=== PATIENT | male | born 1975 | race Caucasian/White ===

== ENCOUNTER → 2024-05-08 08:46 | Outpatient (REF) | payer BC, SELFPAY | LOC: RAD 08:46 | PROVIDERS: ATTENDING PHYSICIAN Surgery Vascular Surgery; FAMILY PHYSICIAN Internal Medicine | DX: I73.9 Peripheral vascular disease, unspecified (principal) | CPT/HCPCS: 93922; 93925 ==

== ENCOUNTER 2024-11-21 20:37 | Inpatient (IN) | payer BC, SELFPAY ==
[2024-11-21] VITALS (9 sets, daily range): BP systolic 119–174; BP diastolic 77–115; BMI 17.7
[2024-11-21 15:41] LABS: % Basophils 1.4 % (0-2); % Eosinophils 1.2 % (0-6); % Immature Granulocytes 0.1 % (0-0.5); % Lymphocytes 24.3 % (20.5-51.1); % Monocytes 8.2 % (1.7-9.3); % Neutrophils 64.8 % (42.2-75.2); Absolute Basophils 0.1 10^3/uL (0-0.2); Absolute Eosinophils 0.1 10^3/uL (0-0.7); Absolute Lymphocytes 1.9 10^3/uL (1.2-3.4); Absolute Monocytes 0.6 10^3/uL (0.1-0.6); Hematocrit 39.2 % (39.0-52.0); Hemoglobin 13.7 g/dL (13.0-18.0); Mean Corp Hgb Conc. 34.9 g/dL (33.0-37.0); Mean Corpuscular Hgb 31.9 pg (27.0-31.0); Mean Corpuscular Volume 91.4 fL (80.0-94.0); Mean Platelet Volume 8.2 fL (7.4-10.4); Nucleated Red Blood Cells % 0 % (-); Platelet Count 282 10^3/uL (130-400); Red Blood Cell Count 4.29 10^6/uL (4.70-6.10); Red Cell Dist. Width 12.9 % (11.5-14.5); White Blood Cell Count 7.7 10^3/uL (4.8-10.8)
--- NOTE | 2024-11-21 15:41 | CON.VAS ---
Consultation
Consultation Request
Date/Time Consultation Performed: 11/21/24 1545
Requesting Provider: ED physician
Performing Provider: Darlin Ruano NP-C for Santiago Norman M.D.
Reason for Consultation: Left lower extremity increased claudication symptoms
Medical History
-
Chief Complaint: Left lower extremity increased claudication symptoms
History of Present Illness:
This is a 49-year-old male with significant past medical history for peripheral arterial disease, hypertension, GERD, asthma, Raynaud's, agoraphobia, and small fiber neuropathy who presents to [facility] ED with reports of worsening onset of left
lower extremity claudication symptoms starting this afternoon. Patient denies pain at rest or current pain. He does endorse that pain only comes on with long distances of walking roughly a parking lots distance then develops onset of left lower
extremity calf pain described as cramping. Patient is known to our vascular surgical service for management of peripheral arterial disease and acute limb ischemia please see vascular surgical history below. Patient offers no other complaints other
than left lower extremity claudication. Denies left foot paresthesia, motor loss, tissue loss, wounds, or change in temperature to foot. He does note at baseline left foot is cooler than right.
Past vascular surgical history:
10/27/17- Left lower extremity arteriogram. Third order vessel catheterization of left peroneal artery via right common femoral artery puncture. Placement of Zilver PTX self expanding drug-eluting Nitinol stent left distal superficial femoral artery,
using 6 mm x 40 mm stent. Balloon angioplasty of left behind knee popliteal artery with a 5 mm x 40 mm Lutonix drug coated balloon and subsequent balloon angioplasty with 6 mm x 40 mm angioplasty balloon. Right femoral angiogram. Supervision and
interpretation. Santiago Norman MD
11/10/20- Right ultrasound-guided common femoral artery puncture. Left lower extremity arteriogram with third order catheterization. Lytic catheter placement into the SFA and popliteal artery. tPA infusion with 4 mg tPA bolus. Rod Douglas MD
11/11/20- Left lower extremity arteriogram, catheterization. Removal of lytic catheter. Angioplasty and stent of left SFA and popliteal artery using a 6 x 140, 6 x 100 Zilver PTX. Rod Douglas MD
Past Medical History
Past Medical History: HTN and Other (Peripheral arterial disease, agoraphobia, eczema, Raynaud's, small fiber neuropathy)
Past Surgical History: Other (Tonsillectomy, vasectomy, dental surgeries)
Social History
Tobacco: Former Smoker
Alcohol: Daily
Allergies / Home Medications
Allergy/AdvReac Type Severity Reaction Status Date / Time
Penicillins Allergy Swelling Verified 11/21/24 15:21
�Medication �Instructions �Recorded �Confirmed �Type
atorvastatin 20 mg tablet 20 mg PO QPM High cholesterol 11/10/20 12/10/20 History
lisinopril 10 mg tablet 20 mg PO Daily Blood pressure 11/10/20 12/10/20 History
clopidogrel 75 mg tablet 75 mg PO DAILY #60 tabs 11/12/20 12/10/20 Rx
rivaroxaban 20 mg tablet (Xarelto) 20 mg PO QPM #60 tabs 11/12/20 12/10/20 Rx
pantoprazole 40 mg granules 40 mg PO DAILY #14 ea 05/20/22 Rx
delayed-release for susp in packet
(Protonix)
sucralfate 100 mg/mL oral 5 ml PO QID #400 mL 05/20/22 Rx
suspension (Carafate)
Review of Systems
-
History Source: Patient
Constitutional: Reports No Symptoms
EENT: Reports No Symptoms
Respiratory: Reports No Symptoms
Cardiac: Reports No Symptoms
Vascular: Reports Leg Pain / Claudication
Abdomen/GI: Reports No Symptoms
: Reports No Symptoms
Musculoskeletal: Reports No Symptoms
Skin: Reports No Symptoms
Neurological: Reports No Symptoms
Endocrine: Reports No Symptoms
Physical Exam
Vital Signs
Temp Pulse Resp BP Pulse Ox
98.1 F 111 20 174/91 98
11/21/24 15:21 11/21/24 15:21 11/21/24 15:21 11/21/24 15:21 11/21/24 15:21
Lab Results
11/21/24 15:29
Physical Exam
General: No Apparent Distress and Comfortable
HEENT: Normocephalic, Anicteric and Atraumatic
Respiratory: Non Labored Respirations
Cardiac: Negative JVD
GI: Soft, Non Tender and Non Distended
Musculoskeletal: Edema
Skin: Dry
Neuro: AO x 3
Pulses: Right Dorsalis Pedis: Doppler (Absent left DP, patient indicates this is baseline) and Bilateral Posterior Tibial: Doppler
Assessment / Plan
-
Assessment: 49-year-old male with significant medical history for PAD presenting with acute onset of worsening claudication style pain at left lower extremity
Plan:
Would recommend obtaining CT angio of aorta with runoff to fully evaluate peripheral arterial disease/or acute change to previously placed stents
Plan reviewed with attending Dr. Santiago Norman M.D., who agrees
[2024-11-21 15:50] LABS: APTT 27.6 Sec (23.4-35.0)
[2024-11-21 15:54] LABS: ALT (SGPT) 20 U/L (0-50); AST (SGOT) 23 U/L (17-59); Albumin 4.6 g/dl (3.5-5.0); Alkaline Phosphatase 69 U/L (38-126); Blood Urea Nitrogen 8 mg/dl (9-20); Calcium 9.6 mg/dl (8.4-10.2); Carbon Dioxide 24 mmol/L (22-30); Glucose 146 mg/dl (70-99); Potassium 4.4 mmol/L (3.5-5.1); Sodium 135 mmol/L (135-145); Total Bilirubin 0.8 mg/dl (0.2-1.3); eGFR > 60.00
--- NOTE | 2024-11-21 15:54 | ED.GENMED ---
History of Present Illness
General
Chief Complaint: Vascular Symptoms
Source: patient
Exam Limitations: none
Time Seen by Provider: 11/21/24 15:48
Nursing documentation reviewed up to this point in time: agreed with
History of Present Illness
History of Present Illness:
Patient is a 49-year-old male with history hypertension, DVT on Xarelto, PAD with stents in left lower extremity presenting to the emergency department with acute onset numbness/cramping in left calf. Patient states he did just finished driving for
2 hours when he got off the car noticed a numbness/cramping sensation in his left calf. The symptoms are worse when ambulating. He denies any tingling, numbness, pain in left lower extremity at rest. He denies any obvious change in temperature of
foot. He states that the symptoms reminded him of when he had an acute arterial occlusion requiring stent placement years ago. He contacted his vascular surgeons office who referred him to the emergency department for further evaluation.
Patient is compliant with his Xarelto.
Patient denies any chest pain or shortness of breath.
Past History
Past History
ED Past Medical History: Other and Other
ED Past Surgical History: Other
Social History
Tobacco: Former smoker
Alcohol: Daily
Personal:
Living: with family
Employment: Employed
Family History
Family History: Other
Review of Systems
Review of Systems
Allergies reviewed?: Yes
All Other Systems: ROS reviewed and negative except as documented in HPI and ROS
Phy Exam
Physical Exam
Physical Exam:
Vitals: Mildly tachycardic on arrival. Hypertensive, otherwise vital signs stable.
General: Patient is well appearing, no acute distress. Nontoxic appearing
Skin: Warm and dry, no rashes or lesions
Head: Normocephalic, atraumatic
Eyes: Sclera nonicteric. EOMs intact. No nystagmus.
Throat: Protecting airway
Neck: Normal ROM, no cervical spine tenderness, no meningismus
Cardiac: Tachycardic, normal rhythm, no murmurs
Pulm: Normal respiratory effort, no wheezes, rales, rhonchi heard on exam.
.
Abdomen: No abdominal tenderness.
Extremities: Left lower extremity with dopplerable PT pulse. No pallor or erythema. Normal sensation in LLE. No reproducible tenderness to left calf. Negative Homans' sign of LLE. Normal capillary refill. RLE with palpable PT pulse. Unable to
Doppler DP pulses bilaterally which apparently is patient's baseline.
Neuro: AAOx3. CN II-XII intact. No focal neurologic deficits.
Psychiatric: Normal affect.
Course
Orders/Labs/Results
Orders:
Orders
11/21/24 Dinner
Regular
At Your Request: Full Participation
11/21/24 15:22
CT Abd Aorta Angio W/ Run Off Stat
Comment:
Reason For Exam: LE pain, h/o arterial lysis and stent occlusion
US Legs, Left [US Periph Venous LOWER Ext LT] Urgent
Comment:
Reason For Exam: left calf pain
11/21/24 15:29
Complete Blood Count/With Diff Urgent
Comprehensive Metabolic Panel Urgent
PTT Urgent
11/21/24 17:12
Admit Patient As Directed
Co-Sign Provider:
Level of Care: Inpatient admission
Assign to:: Telemetry
Physician / Group: Vascular
Diagnosis: critical limb ischemia
Reason for Telemetry: Other
Other Reason for Telemetry: critical limb ischemia
Date to Stop Telemetry: 11/23/24
Time to Stop Telemetry: 11:00
Reason for Hospitalization: critical limb ischemia
Expected length of stay greater than two midnights?: Yes
ELOS- Estimated Length of Stay in days: 3
I certify the patient meets the requirements for IP care: Yes
Code Status As Directed
Resuscitation Status: Full Code
Bisacodyl [Dulcolax] 10 mg RECTAL DAILYPRN PRN
Heparin Protocol- PTT Orders As Directed
PTT per Heparin protocol: -Obtain CBC and baseline PTT - if not already collected.
-Obtain PTT 6 hours from start of infusion. Then, every 6 hours until 2 consecutive
PTT's are therapeutic. Then, PTT Daily.
-With each rate change, obtain PTT every 6 hours until 2 consecutive PTT's are
therapeutic. Then, PTT Daily.
Activity As Directed
Activity Level: Out of Bed-Early Mobility
Bladder Scan As Directed
Follow Bladder Retention/Intermittent Cath Algorithm?: Yes
Frequency: Per Retention Algorithm
Bladder Scan As Directed
Follow Bladder Retention/Intermittent Cath Algorithm?: Yes
PRN if no void in __ hours: 6
Frequency: Per Retention Algorithm
If Bladder Scan Result >: 400
then:: Straight cath
Intake/ Output As Directed
Frequency: Per unit guidelines
Notify MD As Directed
Notify physician if: PTT is greater than or equal to 200.
Straight Cath As Directed
Frequency: Per Retention Algorithm
Additional Instructions: as per intermittent urinary catheter algorithm
Straight Cath As Directed
Frequency: Per Retention Algorithm
Additional Instructions: straight cath as needed per acute urinary retention algorithm for 24 hrs
Additional Instructions: for bladder scan greater than 400 mL
Vital Signs As Directed
Frequency: Per unit guidelines
11/21/24 17:13
PRN Pain Medication Management As Directed
May give lesser potent ordered pain med per pt: Yes
preference::
Protocol:: Medication orders for pain may be administered in a
manner that supports deferring to patient preference
when the pt is:
-Requesting an ordered lesser potent pain medication.
Least to most potent pain medications are defined as:
acetaminophen < NSAID < tramadol < opioids (morphine,
oxycodone, hydromorphone).
- Requesting a lesser dose of the same medication IF
ORDERED.
- Requesting a less intrusive route of administration
if both routes are prescribed by the provider (PO <
IV).
11/21/24 17:15
Acetaminophen [Tylenol] 650 mg PO Q4HPRN PRN
HYDROmorphone [Dilaudid] 0.5 mg IV Q4HPRN PRN
Heparin 45636 Units/250 ml 25,000 units in 250 ml IV PER PROTOCOL
Weight to be used for heparin protocol in kilograms (kg):: 58
Protocol:: Vascular Surgery
PTT Goal Range to be used:: PTT 73 to 111 seconds
Order type:: Initial
INITIAL Infusion Dose (UNITS/KG/hr) & then follow protocol:: 18 units/kg/hr
Infusion Dose in UNITS/hr & then follow protocol (UNITS/hr):: 1,000
INFUSION RATE in mL/hr & then follow protocol (mL/hr):: 10
PTT less than or equal to 64 seconds:: Notify Ordering Provider. obtain orders for rate increase &
possible bolus
PTT 64.1 to 72.9 seconds:: Increase rate by 100 units/hr (+ 1 mL/hr)
PTT 73 to 111 seconds:: Target Range. No change in rate.
PTT 111.1 to 130.9 seconds:: Decrease rate by 100 units/hr (- 1 mL/hr)
PTT 131 to 199.9 seconds:: HOLD for 1 hour. Then decrease rate by 200 units/hr (- 2 mL/hr)
PTT greater than or equal to 200 seconds:: STOP INFUSION. Notify Ordering provider to obtain further orders.
Lab follow-up:: Each change, PTT q6h until 2 consecutive are therapeutic. Then PTT
daily.
Oxycodone [Roxicodone] 5 mg PO Q4HPRN PRN
11/21/24 17:42
Lorazepam [Ativan] 0.5 mg PO NOW STA
11/22/24 06:00
Type+Screen IN AM
NPO
Allow oral meds: Yes
Allow clear liquids: No
NPO with Ice Chips: No
Basic Metabolic Panel IN AM
Complete Blood Count/No Diff IN AM
US Vascular Mapping Bilateral IN AM
Comment:
Reason For Exam: upper and lower ext BL
11/23/24 06:00
Complete Blood Count/No Diff Q2D
Comment: Notify MD if platelet count is <130,000 or decreases by 50% from baseline
11/23/24 11:00
DC Protocol for Telemetry ONCE
11/25/24 06:00
Complete Blood Count/No Diff Q2D
Comment: Notify MD if platelet count is <130,000 or decreases by 50% from baseline
11/27/24 06:00
Complete Blood Count/No Diff Q2D
Comment: Notify MD if platelet count is <130,000 or decreases by 50% from baseline
11/29/24 06:00
Complete Blood Count/No Diff Q2D
Comment: Notify MD if platelet count is <130,000 or decreases by 50% from baseline
12/01/24 06:00
Complete Blood Count/No Diff Q2D
Comment: Notify MD if platelet count is <130,000 or decreases by 50% from baseline
12/03/24 06:00
Complete Blood Count/No Diff Q2D
Comment: Notify MD if platelet count is <130,000 or decreases by 50% from baseline
12/05/24 06:00
Complete Blood Count/No Diff Q2D
Comment: Notify MD if platelet count is <130,000 or decreases by 50% from baseline
12/07/24 06:00
Complete Blood Count/No Diff Q2D
Comment: Notify MD if platelet count is <130,000 or decreases by 50% from baseline
Abnormal Lab Results
11/21/24
15:29
RBC 4.29 L 10^6/uL
(4.70-6.10)
MCH 31.9 H pg
(27.0-31.0)
BUN 8 L mg/dl
(9-20)
Glucose 146 H mg/dl
(70-99)
11/21/24 15:29
11/21/24 15:29
Vital Signs
Initial and Last Documented VS:
Initial Vital Signs
Temp Pulse Resp BP Pulse Ox
98.1 F 111 20 174/91 98
11/21/24 15:21 11/21/24 15:21 11/21/24 15:21 11/21/24 15:21 11/21/24 15:21
Last Documented Vital Signs
Temp Pulse Resp BP Pulse Ox
98.1 F 89 22 144/115 97
11/21/24 15:21 11/21/24 15:45 11/21/24 15:45 11/21/24 15:44 11/21/24 15:45
MDM/Problems Addressed
Differential Diagnosis Includes:
Not limited to: Acute arterial occlusion, DVT, complication, muscle strain, neuropathy, etc.
MDM/Problems Addressed:
49-year-old male with known PAD and arterial stents in LLE presenting with claudication symptoms in left lower extremity after 2-hour car ride. He notices tingling, pain in calf after walking short distances. No pain, numbness, coolness at rest.
Compliant with Xarelto. Patient tachycardic and hypertensive on arrival. Otherwise vital signs stable. He is afebrile. Physical exam as above. Patient has no obvious deformity or visual abnormality to bilateral lower extremities. He has
dopplerable left PT pulse and palpable right PT pulse. Unable to Doppler DP pulses bilaterally which apparently is baseline. Patient was seen immediately by vascular surgery team, HAND COPER. Concern for occlusion of arterial stent. Will check basic
labs, ultrasound of LLE and CTA abdomen/pelvis with bilateral lower extremity runoff. Patient remains well and comfortable appearing.
Update: Lower extremity ultrasound and CTA confirmed complete occlusion of left popliteal stent. Vascular down to evaluate patient at bedside who had lengthy discussion regarding surgical options. Patient remains asymptomatic at rest with
dopplerable PT pulses bilaterally. Plan will be heparin, admission to vascular surgery. Plan for vein mapping/surgical treatment tomorrow. Patient excepted to vascular surgery service in stable condition.
Chronic conditions affecting care:
PAD w/ arterial stent in LLE, hypertension, DVT
Acute Exacerbation and/or Progression of Chronic Illness:
Acute complete occlusion of left superficial femoral and popliteal artery stents, acutely hypertensive
*Radiology
Radiology exam reviewed: radiology read reviewed
*Pulse Oximetry
Patient hypoxic: no
*EKG
Interpreted by ED Provider?: NA
*Clinical Dermatologist Interpretation
Rate: Clinical Dermatologist- N/A
*Critical Care Note
Total Time (30-74mins, 75-104mins- exclusive of procedures): Not Applicable
Patient Management
Discussion with other providers: Holter Technician (Case discussed with vascular surgery)
Escalation/DeEscalation of care consider admission/obs:
Admit indicated
ED Attending Note
-
Portions of this chart may have been created with voice recognition software.� Occasional wrong word or��sound alike� substitutions may have occurred due to the inherent limitations of voice recognition software.
Discharge Plan
Departure
Patient Disposition: Admit
Date of Disposition: 11/21/24
Time of Disposition: 17:35
Admit to doctor: Dr. Norman
Presentation/result/management discussed w/ accepting MD/DO: Vascular Surgery
Discharge Problem:
PAD (peripheral artery disease)
Prescriptions:
No Action
atorvastatin 20 MG tablet
20 mg PO QPM
lisinopril 10 MG tablet
20 mg PO Daily
clopidogrel 75 MG tablet
75 mg PO DAILY Qty: 60 0RF
rivaroxaban [Xarelto] 20 MG tablet
20 mg PO QPM Qty: 60 0RF
pantoprazole [Protonix] [address] for susp in packet
40 mg PO DAILY Qty: 14 0RF
sucralfate [Carafate] 100 mg/mL suspension
5 ml PO QID Qty: 400 0RF
Interventions
Interventions:
*General Assessment Last Done: 11/21/24 15:21
ED- Cardiac Assessment Last Done: 11/21/24 16:13
ED- Pulmonary Assessment Last Done: 11/21/24 16:13
ED-Peripheral Vascular Assessment Last Done: 11/21/24 16:13
Discharge Date and Time
Print Language: BAHAMIAN
[2024-11-21 16:04] LABS: Chloride 101 mmol/L (98-107)
--- NOTE | 2024-11-21 17:17 | W.PN.UPDATE ---
Update Note
Progress Note Update
Reviewed CTA with Dr Norman. SFA/pop stent occluded.
Plan:
-Admit
-NPO after midnight
-Vein mapping in AM
-Heparin gtt
-Planning for Lysis vs open thrombectomy vs bypass tomorrow, Dr Norman to discuss with pt tomorrow morning after vein mapping.
-I will update pt tonight on this plan
[2024-11-21] MEDS: HEPARIN 25000 UNITS/250 ML IV (17:29)
[2024-11-21] MEDS: ATIVAN 0.5 MG PO (18:11)
[2024-11-21] MEDS: ROXICODONE 5 MG PO (18:15)
--- NOTE | 2024-11-21 21:30 | PTCARENOTE ---
Pt admitted from ED at 21:25 dx Left Critical Limb Ischemia. PMH HTN, (DVT on Xarelto) CAD (2 stents behind left knee), former smoker.
Left SFA/pop stent occluded. NPO after midnight, Vein mapping in AM, Heparin gtt, Planning for Lysis vs open thrombectomy vs bypass tomorrow. Pt bed in a low position, pain mgmt addressed, call light in reach, care ongoing.
[2024-11-22] VITALS (20 sets, daily range): BP systolic 111–148; BP diastolic 51–94; BMI 17.7
[2024-11-22] MEDS: ROXICODONE 5 MG PO ×4 (00:10→20:08)
[2024-11-22 00:18] LABS: APTT 42.3 Sec (23.4-35.0)
[2024-11-22 07:29] LABS: Hematocrit 38.1 % (39.0-52.0); Mean Corp Hgb Conc. 34.1 g/dL (33.0-37.0); Mean Corpuscular Hgb 31.4 pg (27.0-31.0); Mean Platelet Volume 8.5 fL (7.4-10.4); Platelet Count 262 10^3/uL (130-400); Red Blood Cell Count 4.14 10^6/uL (4.70-6.10); Red Cell Dist. Width 13.1 % (11.5-14.5); White Blood Cell Count 7.9 10^3/uL (4.8-10.8)
[2024-11-22 07:42] LABS: APTT 57.7 Sec (23.4-35.0)
--- NOTE | 2024-11-22 07:51 | W.PN.UPDATE ---
Update Note
Progress Note Update
Seen and evaluated with TECHNICAL SALES ASSOCIATE's. Known well to me. History of left lower extremity angioplasty/stenting. Subsequent occlusion underwent thrombolysis with stenting again. Has stents that extend from distal SFA to popliteal behind and below the knee.
Acute symptoms of left calf discomfort after long car trip when he got up. Then noted significant claudication. No rest pain in the foot. Exam as noted in H&P. Palpable left femoral pulse. Nonpalpable distally. Left foot is warm.
Motor/sensory function fully intact. CT angiogram reviewed. Occlusion of the stents. However arteries are patent above and below. There may be the slightest filling defect at the bifurcation of the below-knee popliteal artery. However may just
be artifact.
I discussed extensively with the patient the findings. This is again recurrent occlusion of the stent. However it has been a few years since the last time. And likely this is mechanical due to kinking after sitting for a prolonged period. At
this point given his young age I would generally favor bypass, but based on his CT scan his veins look very small. Therefore prosthetic below the knee would not necessarily be ideal. In that case maybe restoring patency of the stent may be better,
but there is risk of recurrent stenosis or occlusions. He understands. Thrombolysis would be 1 option, or alternatively open surgical thrombectomy with SFA cutdown slightly more proximally may be reasonable. I likely would favor that as it would
be more expeditious, and the last time we had done thrombolysis he did not tolerate well and had severe worsening pain. Discussed this all with him. He is amenable. Will obtain vein mapping though to see if he has any suitable vein, and that
setting could consider bypass.
[2024-11-22 08:03] LABS: Blood Urea Nitrogen 6 mg/dl (9-20); Carbon Dioxide 26 mmol/L (22-30); Chloride 104 mmol/L (98-107); Estimated Creatinine Clearance 105 ml/min; Glucose 95 mg/dl (70-99); Sodium 137 mmol/L (135-145); eGFR > 60.00
[2024-11-22] MEDS: PERIDEX 0.12% ORAL RINSE 15 ML PO (11:05)
[2024-11-22] MEDS: BACTROBAN 2% OINTMENT 1 APPLIC NASAL (11:05)
--- NOTE | 2024-11-22 11:31 | CM ---
Reviewed the chart notes and spoke with the patient at the bedside. The patient resides with his spouse, son, and daughter in a two story home with no steps to enter. The patient reports no DME/VN/SNF in the past. The patient confirmed his
pharmacy of choice is the [facility]. CM continues to be available to patient/family and is monitoring medical plan for needs at discharge.
Plan: Discharge plans will depend on the patient's progress.
[2024-11-22] MEDS: VANCOCIN 200 IV (12:43)
--- NOTE | 2024-11-22 12:54 | W.SUR.PREOP ---
Pre-Operative Surgical Note
-
I have examined this patient prior to the performance of the scheduled procedure.
The patient's condition is unchanged from the time of the current History and
Physical and the patient is able to undergo the scheduled procedure.
I discussed extensively with patient. I discussed with his over the phone per his request as well. Discussed with them I plan for left lower extremity thrombectomy to reestablish patency in his left lower extremity arteries and stents. This
would be the most expeditious way for revascularization. Discussed if unable to do so, likely plan bypass (either with arm vein or alternatively prosthetic, ideally with leg vein but based on vein mapping and CAT scan imaging it looks very small).
We discussed alternatively primarily bypassing but the enhanced risks therein. Alternatively risk of no intervention and living with claudication discussed. I discussed procedural aspects. Discussed risk including not limited to bleeding,
infections, persistent ischemia, repeated thrombotic events, limb threat. He understands all wishes to proceed. I also did discuss the potential need for fasciotomies, but very unlikely as his foot is not floridly ischemic.
--- NOTE | 2024-11-22 13:57 | W.SUR.POST ---
Surgical Immediate Post Op
Note
Pre Op Diagnosis: critical limb ischemia
Post Op Diagnosis: Same
Procedure Performed: LLE open arterial thrombectomy
Primary Surgeon: Emerson
Secondary Surgeons: Alden BENNETT
Anesthesia: LMA
Estimated Blood Loss: 15cc
Fluids: See anesthesia flow sheet
Drains/Shunts: none
Specimens/Cultures: clot
Doppler/Duplex/Angio (Y/N): N
Complications: none
Operative Findings: Successful thrombectomy, +PT doppler signal
--- NOTE | 2024-11-22 14:20 | OR.RPT ---
Operative Report
Operative Report
PROCEDURE DATE: 11/22/2024
Preoperative diagnosis: Acute limb ischemia left lower extremity
Postoperative diagnosis: Same
Procedure: Left lower extremity arterial thrombectomy (SFA/popliteal).
Surgeon: Emerson
Orthotic Fitter: DARBY Ruano, required for all aspects of procedure including assistance with traction/countertraction, assistance with closure.
Complications: None
Anesthesia: General
Indications for procedure:
History of left SFA and popliteal (extending below knee) stents. Acute symptoms 1 day ago of left calf pain and atypical sensation, and then pain with walking after a long car ride he was sitting. He had been compliant on his usual anticoagulation
([facility] protocol) dosages. Therefore it was felt that perhaps his mechanically resulted from prolonged sitting and kinking of stents temporarily. Patient presented to the emergency room immediately upon symptom onset. Risk/benefits/alternatives
of thrombectomy were all fully discussed. Patient understood all wished to proceed.
Description of procedure:
Patient was identified brought to the operating room placed on the table in supine position. After the adequate administration of anesthesia he was prepped and draped in the standard surgical fashion. A standard preoperative timeout was undertaken
and everybody was in agreement the plan. A longitudinal incision was made in the proximal anterior thigh and was carried through skin subcutaneous tissue. The crural fascia was incised with the electrocautery. The sartorius muscle was identified
and the superficial femoral artery pulsation was palpable at the medial/posterior edge of the sartorius muscle. Self-retaining retractors were placed and the superficial femoral artery was carefully dissected away from the surrounding structures
and great care to avoid any injury to structures. Vessel passed around approximately distally. These Vesseloops were double looped. The patient had been maintained on a heparin drip. At this point I tightened my Vesseloops. A transverse
arteriotomy was made on the SFA with an 11 blade and extended using a Au scissor. 4 Alicia catheter was then used to perform thrombectomy of left SFA and popliteal artery. Immediately received formed clot that appeared to be acute clot.
Immediate significant backbleeding was noted. I ran the Alicia an additional time and retrieve slight more thrombus. After this I ran it 2 more times and retrieved no thrombus. I then used a 3 Alicia to run down to at least 50 cm. No
additional thrombus was retrieved. At this point I had excellent backbleeding is noted. Heparinized saline was instilled. There was excellent pulsation in the inflow artery, but a Alicia was inserted but no clot retrieved. Heparinized saline
instilled. The transverse arteriotomy was closed with interrupted 6-0 Prolene suture. Prior to completing and tying down the sutures, I backbled and forward bled the levelock arteries. I irrigated heparinized saline and then completed and tied down
the sutures. I then released the clamps on the artery proximally and distally. There is now excellent pulsatile flow in the superficial femoral artery with an excellent Doppler signal in the artery distal to the closure site. I was able to easily
now palpate a posterior tibial pulse at the ankle. Doppler confirmed excellent signal at the ankle. At this point I was very satisfied. We irrigated and achieved/confirmed full hemostasis. We then closed in layers using 3-0 Vicryl deep dermal
layer followed by 4-0 Monocryl subcuticular running stitch. Dermabond was applied. The patient tolerated procedure well.
[2024-11-22] MEDS: DILAUDID 0.5 MG IV ×2 (14:56→23:21)
[2024-11-22 15:01] LABS: Hematocrit 40.2 % (39.0-52.0); Hemoglobin 13.6 g/dL (13.0-18.0); Mean Corp Hgb Conc. 33.8 g/dL (33.0-37.0); Mean Corpuscular Hgb 31.3 pg (27.0-31.0); Mean Corpuscular Volume 92.4 fL (80.0-94.0); Mean Platelet Volume 8.4 fL (7.4-10.4); Platelet Count 246 10^3/uL (130-400); Red Blood Cell Count 4.35 10^6/uL (4.70-6.10); White Blood Cell Count 8.8 10^3/uL (4.8-10.8)
[2024-11-22 15:11] LABS: APTT 69.2 Sec (23.4-35.0)
[2024-11-22 15:21] LABS: Blood Urea Nitrogen 4 mg/dl (9-20); Carbon Dioxide 26 mmol/L (22-30); Chloride 103 mmol/L (98-107); Estimated Creatinine Clearance 123 ml/min; Glucose 117 mg/dl (70-99); Sodium 135 mmol/L (135-145); eGFR > 60.00
[2024-11-22] MEDS: NSS 1000 IV (15:52)
--- NOTE | 2024-11-22 16:13 | PTCARENOTE ---
Rec'd patient from PACU at 1545. Patient alert and oriented. LLE neurovascular check performed with BATCH BLENDER. +Pt pulse. Extremity pink, warm. Normal sensation per patient. Left groin site soft, dressing intact. C/o 4/10 left groin pain. Medicated
with PRN Odette. NSR on tele. Rate in the 60's. Lung sounds cta on RA. +BS. Appetite good. Tolerating clears. Assisted in ordering dinner. Voiding via urinal. IVFs and Heparin gtt infusing through RAC INT. Next PTT due at 0.
--- NOTE | 2024-11-22 16:24 | CON.INTV ---
Consultation
Consultation Request
Date/Time Consultation Requested: 11/22/2024
Date/Time Consultation Performed: 11/22/2024
Requesting Provider: Santiago Norman
Performing Provider: Ashkan Méndez
Reason for Consultation: Limb ischemia
Medical History
-
Chief Complaint: Limb pain
History of Present Illness:
Patient is a very pleasant 49-year-old gentleman with known history of peripheral vascular disease s/p lower extremity arterial stenting for limb ischemia in 2020. Patient says that he was driving back from [employer] and felt worsening leg discomfort
which eventually led to visit to emergency room and was noted to have critical limb ischemia. Patient subsequently was seen by vascular surgery and today was taken for thrombectomy. Postprocedure, patient was placed on heparin drip and admitted to
ICU. Cargo Tank Mechanic consult was requested for further input.
Past medical history. Hypertension, history of smoking, quit 4 years ago, peripheral arterial disease s/p left lower extremity SFA stent placement. Mild Raynaud's disease improved since smoking cessation.
Social history. About 78-lsso-olcy smoking history, quit in 2020.
Family history. Noncontributory.
Allergies / Home Medications
Allergies
Allergy/AdvReac Type Severity Reaction Status Date / Time
Penicillins Allergy Swelling Verified 11/21/24 15:21
Home Medications
�Medication �Instructions �Recorded �Confirmed �Last Taken �Type
atorvastatin 20 mg tablet 20 mg PO DAILY High cholesterol 11/10/20 11/22/24 11/21/24 08:00 History
lisinopril 10 mg tablet 40 mg PO Daily Blood pressure 11/10/20 11/22/24 11/21/24 12:00 History
Aspirin Child 81 mg PO DAILY 11/22/24 11/22/24 11/21/24 12:00 History
diltiazem HCl 120 mg capsule,24 120 mg PO DAILY 11/22/24 11/22/24 11/21/24 History
hr,extended release
lorazepam 0.5 mg tablet 0.5 mg PO DAILY PRN anxiety 11/22/24 11/22/24 Unknown History
rivaroxaban 20 mg tablet (Xarelto) 20 mg PO QPM #120 tabs 11/22/24 Unknown Rx
Review of Systems
-
Hematologic/Lymphatic: Other (All 14 systems reviewed and negative except as stated above in the history of present illness.)
Vitals / Labs / Diagnostic Testing
Vital Signs
Temp Pulse Resp BP Pulse Ox
98.0 F 63 11 120/78 95
11/22/24 16:06 11/22/24 16:15 11/22/24 16:15 11/22/24 16:15 11/22/24 16:15
Lab Data
11/22/24 14:52
11/22/24 14:52
Laboratory Results
11/21/24 11/22/24 11/22/24
23:58 07:11 14:52
APTT 42.3 H 57.7 H 69.2 H
Diagnostic Testing:
Physical Exam
-
HEENT: Normocephalic
Cardiovascular: S1/S2
Respiratory: Clear
GI: Soft and Non Distended
Neurology: Awake, Alert and Oriented
Skin: Warm
General: Comfortable
Assessment
-
Patient is a 49-year-old gentleman with known history of peripheral vascular disease, presented with acute limb ischemia, s/p Left lower extremity arterial thrombectomy (SFA/popliteal) by vascular surgery service, POD #0
Continue observation following procedure
Follow neurovascular checks per protocol
On Heparin infusion
Follow BP monitoring and parameters as set by primary team
Monitor on telemetry
Pain control per protocol
RASS goal 0
No prior history of pulmonary disease, however h/o smoking, not on any inhalers at home. Patient quit 4 years ago.
History of mild Raynaud's disease, improved since he quit smoking.
No prior PFTs for review
Encouraged IS
Diet advancement per protocol
Aspiration precautions
GI prophylaxis: on Protonix
Creat at baseline, follow UO
Critical I/Os
Void trials
Replete electrolytes as needed
No signs/symptoms suspicious for infectious etiology at this time
Will observe off antibiotics for now
Follow temperatures/CBC
DVT prophylaxis: On Heparin infusion
Encouraged OOB/PT/OT/ambulation once cleared by surgical team
Other medical diagnoses:
- Hyperlipidemia, resume statins
- Anxiety, resume as needed Ativan
- History of Raynaud's disease, symptoms significantly improved since smoking cessation 4 years ago
Critical Care time 52 mins -- The patient is admitted for acute critical illness for the treatment of vital organ failure and/or prevention of further life-threatening conditions. Total care includes time spent in review of history, physical exam,
medications, hemodynamic/ventilator parameters, laboratory data, imaging and discussion with house staff, pharmacy, respiratory therapy, rigging loft repairer, and nursing.
Data:
Peripheral US: 11/2024: 1. No sonographic evidence for left lower extremity deep venous thrombosis.
2. COMPLETE OCCLUSION of LEFT SUPERFICIAL FEMORAL and POPLITEAL ARTERY STENTS.
CTA 11/2024: 1. Left popliteal stent is occluded. There is reconstitution of the distal popliteal artery. Occlusion of the left anterior tibial artery.
2. Focal weblike stenosis within the right distal SFA. Mild dilation of the right popliteal artery, measuring 9 mm in greatest orthogonal dimension. Focal dissection within the right popliteal artery as detailed above.
CXR 05/2022: Unremarkable
Cardiac Cath 11/2017: 1: Systemic hypertension
2: Normal left ventricular wall motion with EF 68%
3. Normal coronary arteries
ECHO 10/2017: LV ejection fraction is 65-70% by visual assessment. No regional wall motion
abnormalities are seen. Normal diastolic function.
Normal right ventricular size and function.
Trace mitral regurgitation.
Trileaflet aortic valve. Aortic valve opens normally.
Structurally normal tricuspid valve without significant stenosis or
regurgitation. Right heart pressures could not be determined.
[2024-11-22 16:43] LABS: Magnesium 1.9 mg/dl (1.6-2.3); Phosphorus 3.7 mg/dl (2.5-4.5)
[2024-11-22] MEDS: ATIVAN 0.5 MG PO (17:22)
[2024-11-22] MEDS: LIPITOR 20 MG PO (17:22)
--- NOTE | 2024-11-22 20:00 | PTCARENOTE ---
Rec`d pt at 1900 AAOx3. LLE vascular checked with previous shift RN. left +Pt pulse. No left DP pulse (Pts baseline and vascular aware.) Normal sensation per patient. Left groin site- soft and c/d/i. NSR on monitor. RA. +BS with good Appetite.
using urinal. IVFs and Heparin gtt infusing through RAC PIV. Flushed and patent. call natarajan in reach, safe environment maintained.
[2024-11-22 22:13] LABS: APTT 108.5 Sec (23.4-35.0)
[2024-11-23] VITALS (10 sets, daily range): BP systolic 103–141; BP diastolic 64–89; BMI 17.5
[2024-11-23 03:29] LABS: Hematocrit 36.9 % (39.0-52.0); Hemoglobin 12.7 g/dL (13.0-18.0); Mean Corp Hgb Conc. 34.4 g/dL (33.0-37.0); Mean Corpuscular Hgb 31.8 pg (27.0-31.0); Mean Corpuscular Volume 92.3 fL (80.0-94.0); Mean Platelet Volume 8.5 fL (7.4-10.4); Platelet Count 259 10^3/uL (130-400); Red Cell Dist. Width 12.9 % (11.5-14.5); White Blood Cell Count 7.9 10^3/uL (4.8-10.8)
[2024-11-23] MEDS: NSS 1000 IV (03:31)
[2024-11-23] MEDS: DILAUDID 0.5 MG IV ×2 (03:31→07:37)
[2024-11-23 03:35] LABS: INR 0.98; PT 13.5 Sec (11.4-14.6)
[2024-11-23 03:36] LABS: APTT 124.4 Sec (23.4-35.0)
[2024-11-23 03:44] LABS: Blood Urea Nitrogen 5 mg/dl (9-20); Calcium 9.3 mg/dl (8.4-10.2); Carbon Dioxide 24 mmol/L (22-30); Chloride 104 mmol/L (98-107); Estimated Creatinine Clearance 123 ml/min; Glucose 196 mg/dl (70-99); Potassium 4.4 mmol/L (3.5-5.1); Sodium 136 mmol/L (135-145); eGFR > 60.00
--- NOTE | 2024-11-23 03:45 | PTCARENOTE ---
heparin gtt titrated per protocol to 1400. prn pain meds given. no changes in pt assessment.
[2024-11-23] MEDS: HEPARIN 25000 UNITS/250 ML IV (05:22)
--- NOTE | 2024-11-23 07:07 | PTCARENOTE ---
Assumed care of pt. approx 0700.
Resting in bed, mentating appropriately, offering complaints of pain in L Leg throughout. Pulse in L DP absent at baseline.
RA maintaining own airway 100 SP02, CTA bilaterally.
NSR w.o ectopy noted. Normotensive, normothermic.
Plan of care explained, all questions answered at this time.
[2024-11-23] MEDS: PROTONIX 40 MG PO (07:37)
--- NOTE | 2024-11-23 07:39 | W.PN.VS ---
Addendum entered and electronically signed by Santiago Norman MD 11/23/24 08:06:
Seen and examined with DARBY Anderson. Agree with findings as noted below. Patient without significant complaints. Left thigh dressing is clean dry and intact. Thigh is soft. No hematoma. Calf is soft, compartments all soft. Left foot is warm. 2+
easily palpable PT pulse. Plan/as discussed and noted below. As noted transition to p.o. anticoagulation (full dose). Follow-up office incisional check 2 to 3 weeks. And then likely ultrasound to follow and additional office follow-up 4 to 6
weeks after that for further discussion regarding long-term plan (whether to continue anticoagulation, and regarding decision re: prophylactic preventative bypass versus continued surveillance).
Original Note:
Today's Communication / Plan
-
Seen and assessed with Dr. Norman
Assessment/Plan
-
Postop day 1 left lower extremity open arterial thrombectomy
Plan:
�Continue heparin drip until discharge, will switch to Xarelto at that time
�Pain control
�Will discharge later today, planning for office follow-up in 2 weeks
Subjective Data
-
Date of Service: November 23, 2024
Patient seen at bedside this a.m. with Dr. Norman. Patient offers no complaints at this time. No events overnight.
Objective Data
-
Vital Signs
Temp Pulse Resp BP Pulse Ox
98.3 F 82 13 125/83 99
11/23/24 03:07 11/23/24 05:15 11/23/24 05:15 11/23/24 05:00 11/23/24 07:10
Intake and Output
11/22/24 11/23/24 11/24/24
06:59 06:59 06:59
Intake Total 240 / 240 1901 / 1995
Output Total 600 / 600 1999 / 1999 0 / 0
Balance -360 / -360 -98 / -4
Intake:
Oral fluids 240 / 240 480 / 480 0 / 0
IV fluids (Total) 1422 / 1516 94 / 94
Heparin 222 / 236 14 / 14
Nss 1,000 ml @ 80 mls/hr IV . 1200 / 1280 80 / 80
[id number] COUNTS INCLUDE 234 BEDS AT [facility] Rx#:[id number]
Output:
Urine, Voided 600 / 600 2000 / 2000 0 / 0
Other:
Number of approximated MODERATE 2
amounts of urine
Lab Results
11/23/24 03:12
11/23/24 03:12
Calcium 9.3 mg/dl (8.4-10.2) 11/23/24 03:12
Phosphorus 3.7 mg/dl (2.5-4.5) 11/22/24 14:52
Magnesium 1.9 mg/dl (1.6-2.3) 11/22/24 14:52
Total Bilirubin 0.8 mg/dl (0.2-1.3) 11/21/24 15:29
AST 23 U/L (17-59) 11/21/24 15:29
ALT 20 U/L (0-50) 11/21/24 15:29
Alkaline Phosphatase 69 U/L (38-126) 11/21/24 15:29
Total Protein 7.0 g/dl (6.3-8.2) 11/21/24 15:29
Albumin 4.6 g/dl (3.5-5.0) 11/21/24 15:29
Physical Exam
-
AAO x 3
No tachypnea on room air
No tachycardia
Abdomen soft, nontender
Groin site clean, dry, intact, soft, flat, Aquacel dressing intact
Foot is warm and pink with palpable PT pulse
--- NOTE | 2024-11-23 08:08 | W.[place]-PDMP ---
[place]-PD[place]
-
Checked the [place]- Prescription Drug Monitoring Program website, no red flags identified; safe to proceed with prescription.
--- NOTE | 2024-11-23 09:24 | PTCARENOTE ---
Rounds w. [facility] surg/linen worker completed.
Pt. is expected to be D/C later this afternoon, discussed w. vascular surg. pt. expressed concerns with cost of loading dose Xerelto, verbal for case management consult given.
Pt. ambulating in room w.o issue. Hemodynamically stable.
[2024-11-23 09:42] LABS: APTT 106.3 Sec (23.4-35.0)
[2024-11-23] MEDS: ROXICODONE 5 MG PO (10:21)
--- NOTE | 2024-11-23 11:00 | CM ---
Patient who is s/p LLE open arterial thrombectomy.
Per nurse Javi: Ambulating very well. And no need for home wound care, aqua cell intact & office to remove. will be picking him up.
CM Consult: Aleman check Xarelto 20mg daily
Per ambulatory orders, cost is $59.49/month.
Met with patient who is ok with cost - provided $10 copay card.
Patient states he has been on Xarelto previously and is unaware of cost as handles all of that for him.
Message to Zoe Anderson EDGE GLUER, re; the above.
Patient states he feels ready for discharge today.
Plan home today.
--- NOTE | 2024-11-23 11:27 | PTCARENOTE ---
No change in pt. assessment.
Per Vasc surg. Patient expected to be discharged [id number].
CM rounded on pt. to provide Xarelto cost information.
Ambulating appropriately
--- NOTE | 2024-11-23 11:53 | W.DS.TRANS ---
DC Summary - It Risk Advisor
-
Discharge Instructions:
Discharge Diagnosis/Procedures Left lower extremity open arterial thrombectomy
Diet As tolerated
Activity No strenuous activity
Driving Restrictions No driving for 1 week
Bathing Restrictions OK to Shower
Instructions:
Stand-Alone Forms: Vascular Surg Discharge Instr
Changes to Home Medications: Yes
Discharge Medications:
DC Medications w/original date entered in [facility]
atorvastatin 20 mg tablet 20 mg PO DAILY High cholesterol 11/10/20
lisinopril 10 mg tablet 40 mg PO Daily Blood pressure 11/10/20
aspirin 81 mg tablet,delayed release 81 mg PO DAILY Blood Clot Prevention/Tx 11/22/24
diltiazem HCl 120 mg capsule,24 hr,extended release 120 mg PO DAILY Blood Pressure 11/22/24
lorazepam 0.5 mg tablet 0.5 mg PO DAILY PRN anxiety 11/22/24
rivaroxaban 20 mg tablet (Xarelto) 20 mg PO QPM #120 tabs 11/22/24
hydromorphone 2 mg tablet 2 mg PO Q6HPRN PRN severe pain #8 tabs 11/23/24
Home Medication Changes
Added Xarelto 20 mg p.o. daily and Dilaudid for pain management
Pending Results: No
[2024-11-23] MEDS: XARELTO 20 MG PO (12:01)
--- NOTE | 2024-11-23 12:26 | PTCARENOTE ---
Discharge instructions explained to and patient bedside.
All questions answered, vital signs WNL, site checks performed WNL.
Pt. escorted.
--- NOTE | 2024-11-23 12:35 | PN.CDI ---
CDI
- -
CDI:
Physician Documentation Request
Admit Date: 11/21/24 20:37
Dear Doctor /CLINICAL DOCUMENTATION MANAGER,
Please review the following and provide your response in the progress notes.
Clinical Indicators:
Height: 5 ft 11 in
Weight:125 lb
BMI:17.7
Other Clinical Notes: Nutrition consult 11/23,' Current BW: (11/22) 127 lbs 3.2 oz BMI: 17.7 (underweight). Weight history(05/20/2022) 123 lbs..'
If possible, please provide an associated diagnosis related to the abnormal BMI, such as:
BMI < or = to 19
Underweight
Cachectic
- Other
Use of terms such as suspected, likely, concern for, or probable (associated with a specific diagnosis that is being evaluated, monitored, or treated as if it exists) are acceptable and can be coded in the inpatient setting, when documented at the
time of discharge.
Thank you,
Neda Kuhn RN
CDI Specialist
[place] [employer]
Please use your independent medical judgment in providing your response.
--- NOTE | 2024-11-26 09:01 | W.PN.UPDATE ---
Update Note
Progress Note Update
CDI:
Physician Documentation Request
Admit Date: 11/21/24 20:37
Please review the following and provide your response in the progress notes.
Clinical Indicators:
Height: 5 ft 11 in
Weight:125 lb
BMI:17.7
Other Clinical Notes: Nutrition consult 11/23,' Current BW: (11/22) 127 lbs 3.2 oz BMI: 17.7 (underweight). Weight history(05/20/2022) 123 lbs..'
If possible, please provide an associated diagnosis related to the abnormal BMI, such as:
BMI < or = to 19
Underweight
Cachectic
- Malnutrition
== END 2024-11-23 12:50 | disposition home or self-care (01) | DRG 253 ==
LOC: ICU 20:37
PROVIDERS: Emergency Medicine; Nurse Practitioner Acute Care; Nurse Practitioner Gerontology; ADMITTING PHYSICIAN Surgery Vascular Surgery; CONSULT PHYSICIAN Internal Medicine; EMERGENCY PHYSICIAN Emergency Medicine; FAMILY PHYSICIAN Internal Medicine
PROC: 04CN0ZZ Extirpation of Matter from Left Popliteal Artery, Open Approach (ICD-10-PCS; 2024-11-21)
PROC: 04CL0ZZ Extirpation of Matter from Left Femoral Artery, Open Approach (ICD-10-PCS; 2024-11-21)
DX: T82.898A Other specified complication of vascular prosthetic devices, implants and grafts, initial encounter (principal); E46 Unspecified protein-calorie malnutrition; Z68.1 Body mass index [BMI] 19.9 or less, adult; I10 Essential (primary) hypertension; G62.9 Polyneuropathy, unspecified; I70.222 Atherosclerosis of native arteries of extremities with rest pain, left leg; M79.662 Pain in left lower leg; I73.00 Raynaud's syndrome without gangrene; J45.909 Unspecified asthma, uncomplicated; K21.9 Gastro-esophageal reflux disease without esophagitis; F40.00 Agoraphobia, unspecified; L30.9 Dermatitis, unspecified; Y83.1 Surgical operation with implant of artificial internal device as the cause of abnormal reaction of the patient, or of later complication, without mention of misadventure at the time of the procedure; Y92.9 Unspecified place or not applicable; Z95.820 Peripheral vascular angioplasty status with implants and grafts; Z86.718 Personal history of other venous thrombosis and embolism; Z79.01 Long term (current) use of anticoagulants; Z87.891 Personal history of nicotine dependence; Z88.0 Allergy status to penicillin; Z79.02 Long term (current) use of antithrombotics/antiplatelets
CPT/HCPCS: 88304; 34201; 75635; 80048; 80053; 83735; 84100; 85025; 85027; 85610; 85730; 86850; 86900; 86901; 93970; 93971; 96365; 96366; 99285; C1757; Q9967

== ENCOUNTER → 2024-12-17 08:01 | Outpatient (REF) | payer BC, SELFPAY | LOC: RAD 08:01 | PROVIDERS: ATTENDING PHYSICIAN Registered Nurse; FAMILY PHYSICIAN Internal Medicine; REFERRING PHYSICIAN Surgery Vascular Surgery | DX: I73.9 Peripheral vascular disease, unspecified (principal) | CPT/HCPCS: 93922; 93925 ==

== ENCOUNTER → 2025-01-28 16:43 | Outpatient (REF) | payer BC, SELFPAY | LOC: RAD 16:43 | PROVIDERS: ATTENDING PHYSICIAN Surgery Vascular Surgery; FAMILY PHYSICIAN Internal Medicine | DX: I73.9 Peripheral vascular disease, unspecified (principal) | CPT/HCPCS: 75635; Q9967 ==

== ENCOUNTER → 2025-05-21 08:48 | Outpatient (REF) | payer BC, SELFPAY | LOC: DHVS 08:48 | PROVIDERS: ATTENDING PHYSICIAN Surgery Vascular Surgery; FAMILY PHYSICIAN Internal Medicine | DX: I73.9 Peripheral vascular disease, unspecified (principal) | CPT/HCPCS: 93922; 93925 ==